=== PATIENT | male | born 1985 | race Hispanic/Latino ===

== ENCOUNTER 2021-01-23 11:26 | Emergency (ER) | payer SELFPAY ==
[~2021-01-23] VITALS: Ht 162.6 cm; Wt 70.3 kg
[2021-01-23] MEDS ORDERED: PENICILLIN G BENZATHINE LA 1.2 MU TBX IM STA (11:41)
[2021-01-23] MEDS ORDERED: PENICILLIN G BENZATHINE LA 1.2 MU TBX ONE (11:56)
== END 2021-01-23 11:58 | disposition home or self-care (01) ==
LOC: ER 11:35
DX: J02.9 Acute pharyngitis, unspecified (principal)
CPT/HCPCS: 99283; J0561